=== PATIENT | female | born 1995 | race Caucasian/White ===

== ENCOUNTER 2017-07-16 15:39 | Outpatient (CLI) | payer BC ==
--- NOTE | 2017-07-16 16:45 | ULT ---
ULTRASOUND WITH DOPPLER DUPLEX VENOUS LOWER EXTREMITY BILATERAL 07/16/17 CPT: 42448 ICD-10-PCS: B54D HISTORY: Bilateral lower extremity pain. TECHNIQUE: Color flow Doppler, spectral waveform analysis of pulsed Doppler, and botello-scale imaging with noe elodia and augmentation, were used to evaluate the bilateral common femoral, femoral, popliteal, decision analyst ior tibial, and superficial femoral, veins; and the proximal portions of the profunda femoral and gre ater saphenous, veins. FINDINGS: Appropriate compressibility and flow within the imaged deep vein system of each lower extremity. IMPRESSION: No DVT. POS: RENATO
== END 2017-07-16 15:40 | disposition home or self-care (01) ==
LOC: ULT 15:39
PROVIDERS: ATTEND Family Medicine
DX: T88.7XXA Unspecified adverse effect of drug or medicament, initial encounter (principal)
CPT/HCPCS: 93970